=== PATIENT | female | born 1960 | race Caucasian/White ===

== ENCOUNTER 2020-05-13 23:11 | Emergency (ER) | payer BC, OTHER ==
[2020-05-13] MEDS ORDERED: HYDROmorphone 0.5 MG/0.5 ML Syringe IM ONE (23:15)
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
--- NOTE | 2020-05-16 10:08 | CR ---
Tibia Fibula Bi, CLINICAL HISTORY: Injury FINDINGS: There is a minimally displaced fracture of the right proximal fibula. Tibia appears intact. There is a cortical linear lucency in the proximal fibula which is suspect for nondisplaced fracture. This is not identifiable on the lateral view. Tibia appears intact. Impression: Mildly displaced fracture right proximal fibula Nondisplaced hairline fracture of the left proximal fibula suspected but only seen in one view. Femur Min 2V Bi CLINICAL HISTORY: Injury FINDINGS: No fractures identified in either femur. The right hip is not completely evaluated with lack of visualization on the lateral image IMPRESSION: No fracture seen If there is right hip symptomatology dedicated study is recommended
== END 2020-05-14 01:37 | disposition home or self-care (01) ==
LOC: JP.ED 23:11
DX: S82.831A Other fracture of upper and lower end of right fibula, initial encounter for closed fracture (principal); S80.02XA Contusion of left knee, initial encounter; S80.01XA Contusion of right knee, initial encounter; S00.81XA Abrasion of other part of head, initial encounter; E78.00 Pure hypercholesterolemia, unspecified; Z88.5 Allergy status to narcotic agent; Z88.8 Allergy status to other drugs, medicaments and biological substances; Z88.2 Allergy status to sulfonamides; Z79.899 Other long term (current) drug therapy; Z72.0 Tobacco use; W23.0XXA Caught, crushed, jammed, or pinched between moving objects, initial encounter
CPT/HCPCS: 29505; 73552-50; 735525026; 735902650; 73590-50; 96372; 99284-25; J1170